=== PATIENT | male | born 2005 | race African-American/Black ===

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

== ENCOUNTER 2023-04-09 11:21 | Emergency (ER) | payer OTHER, SELFPAY ==
[2023-04-09 11:50] VITALS: BP 122/69; PULSE 70; RESP 18; TEMP 36.9; O2SAT 99
--- NOTE | 2023-04-09 13:23 | ED.URI ---
HPI - URI/Sore Throat General Chief Complaint: Upper Respiratory Infection Stated Complaint: congestion History of Present Illness HPI Narrative: 18-year-old male presented for complaint of sinus congestion, cough, sore throat, fevers and chills over the past few days. Denies shortness of breath, wheezing, nausea, vomiting or diarrhea. Taking [id number] medications for symptoms. Related Data Home Medications Medication Instructions Recorded Confirmed sertraline 100 mg tablet 100 mg PO HS 03/11/21 04/09/23 Allergies Allergy/AdvReac Type Severity Reaction Status Date / Time No Known Allergies Allergy Verified 04/09/23 12:36 Review of Systems Review of Systems: Per HPI [facility] Past Medical History Medical History History of anxiety Social History Social History Substance use: current Substance use type: marijuana Exam Narrative: GENERAL: well-appearing, no acute distress. EYES: conjunctivae clear ENT: Mucous membranes moist. TM pearly hodges with normal light reflex bilaterally; no tragal tenderness. Oropharynx mildly erythematous without lesions. Tonsils not enlarged and without exudate. No drooling, no hoarseness, no trismus, uvula midline. No tripod positioning, hot potato voice, or soft palate swelling. NECK: Supple. No lymphadenopathy CHEST: Clear to auscultation, breath sounds equal. No respiratory distress, speaks in full sentences. HEART: Regular rate and rhythm. No murmur heard. SKIN: Warm, dry, no rash. NEURO: Alert and oriented x3. Course Course Emergency Course: Patient is aware of diagnosis, understands and agrees to treatment plan. Anticipatory guidance given. Patient agrees to follow-up as directed and is aware of reasons to seek care at the emergency department. Portions of this record may have been created with voice recognition software Level of Care: Express Care Visit Vital Signs Vital signs: Vital Signs Temperature 98.4 F 04/09/23 11:50 Pulse Rate 70 04/09/23 11:50 Respiratory Rate 18 04/09/23 11:50 Blood Pressure 122/69 04/09/23 11:50 Pulse Oximetry 99 04/09/23 11:50 Oxygen Delivery Room Air 04/09/23 11:50 Temperature 98.4 F 04/09/23 11:50 Pulse Rate 70 04/09/23 11:50 Respiratory Rate 18 04/09/23 11:50 Blood Pressure 122/69 04/09/23 11:50 Pulse Oximetry 99 04/09/23 11:50 Oxygen Delivery Room Air 04/09/23 11:50 MDM - URI/Sore Throat MDM Narrative Medical decision making narrative: Negative COVID, flu, strep results reviewed with patient. Discussed physical exam findings. Advised supportive measures and signs/symptoms to go to the ER. Pt is appropriate for outpt treatment and f/u. Differential Diagnosis Differential diagnosis: Likely upper respiratory infection, sinusitis, viral infection, bronchitis and pharyngitis Lab Data Labs: Influenza A Screen Negative Reference Range: Negative Influenza B Screen Negative Reference Range: Negative Strep Screen Presumptive Negative *(Reference Range: Negative)* Discharge Plan Discharge Clinical Impression: Upper respiratory infection Patient Disposition: Home, Self-Care Condition: Stable Instructions: Antibiotic Form, Upper Respiratory Infection (ED) Additional Instructions: COVID and flu negative Rapid strep swab was negative today You will be notified in a few days if the culture comes back positive for strep, and appropriate antibiotics will be called in at that time. if symptoms are due to a viral illness, it is not treated with antibiotics. Viral symptoms can be present for up to 10-14 days. Take medication as directed Recommend Flonase spray
== END 2023-04-09 13:39 | disposition home or self-care (01) ==
PROVIDERS: Emergency Provider Nurse Practitioner Family
DX: J06.9 Acute upper respiratory infection, unspecified (principal); Z20.822 Contact with and (suspected) exposure to COVID-19; F41.9 Anxiety disorder, unspecified; F12.90 Cannabis use, unspecified, uncomplicated
CPT/HCPCS: 87081; 87426; 87804; 87880; 99213; C9803; G0463

== ENCOUNTER 2024-06-26 21:03 | Emergency (ER) | payer OTHER, SELFPAY ==
--- NOTE | ~2024-06-26 | CT_ITS ---
CT scan of the Neck Technique: 2.5 mm axial scans were obtained through the neck after intravenous administration of 75 c c Omnipaque 350. Coronal and sagittal reconstructions of the neck were obtained. Dose reduction techn ique was used on this scan by utilizing automated exposure control and iterative reconstruction techn ique. The dose-length product (DLP) was 532.97 mGy-cm. Clinical History: Neck swelling Findings: There is mild bilateral cervical lymphadenopathy, likely reactive. No other soft tissue mass or fluid collection seen in the neck. Turner tonsils are mildly prominent. Parapharyngeal spaces appear nor mal bilaterally. The parotid and submandibular glands appear normal. The pharyngeal mucosal spaces appear normal. No soft tissue masses are seen in the neck. The thyroid gland appears normal. Images of the lung apices reveal no abnormalities. Impression: Suggestion of mild tonsillitis and probable mild reactive lymphadenitis. No abscess or other soft tis frederick mass. Reviewed, dictated and finalized at [facility]. TRACK KENNEL MANAGER Impression: Suggestion of mild tonsillitis and probable mild reactive lymphadenitis. No abs cess or other soft tissue mass.
--- NOTE | ~2024-06-26 | XR_ITS ---
EXAMINATION: XR chest 2V Exam Date/Time: 06/26/2024 22:05 FINISH PRODUCTION MANAGER HISTORY: cough, sore throat Comparison: None. RESULT: Lines, tubes, and devices: None. Lungs and pleura: Clear. Cardiomediastinal silhouette: Normal. Other: No acute osseous or upper abdominal finding. IMPRESSION: No acute cardiopulmonary process. Reviewed, dictated and finalized at location K. SH PRODUCTION MANAGER
[2024-06-26 21:07] VITALS: BP 130/81; PULSE 80; RESP 18; TEMP 36.2; O2SAT 98
--- OUTSIDE RECORDS SUMMARY | 2024-06-26 21:07 | XMS_ITS ---
Author Organization [facility]ly [facility] Address [address] [place] [address] Care Team Providers Care Field Marketing Manager Name Role Phone Kalpana Michel Primary Care Provider [phone] Social History Sex Assigned At : Social History Observation Description Sex Assigned At Male Encounters Encounter Location Date Provider Diagnosis [address] [address] 06/18/2024 Kalpana Michel Plan Of Treatment No Information Progress Notes * Onofre TINSLEYDOB: [birth year] (19 yo M)Acc No.[id number]:06/18/2024 Patient: Onofre COLEMAN :2005 A ge:19 Y S ex:Male Address:[address] [place] [address], [id number] Subjective: * Chief Complaints: * * HPI: I nitial: Issues discussed: . Client asked for the HN to reach out to Dr. Willams's nurse to let them know his medications were sent to the wrong pharmacy.. S trengths: . . G oal/Objective: . . Scott carrillo's action: . HN reached out to Shelbi Monroe to provide her with the correct pharmacy information for [facility] [phone]. Client is needing his prescriptions sent to the right pharmacy.. P kei's response: . Patient is waiting on a response from the 's nurse regarding his prescriptions.. * Medical History: * Surgical History: * Hospitalization/Major Diagno stic Procedure: * Medications: Objective: * Vitals: * Physical Examination: Assessment: Plan: * Treatment: * Procedure Codes: T 1016 CASE MANAGEMENT EACH 15 MINS * true * Date: Generated for Carla denton/Dariel/Lorraine on: 0 06/26/2024 09:07 PM AUTO INSPECTION SPECIALIST History and Physical Notes * HPI (History of Present Illness) Category Sub-Category Detail Notes Category Not es Initial Issues discussed: .Client asked for the HN to reach out to Dr. Willams's nurse to let them know his medications were sent to the wrong pharmacy. Goal/Objective: . Counselor's action: .HN reached out to Pasha Monroe to provide her with the correct pharmacy information for [facility] [phone]. Client is needing his prescriptions sent to the right pharmacy. Patient's response: .Patient is waiting on a response from the 's nurse regarding his prescriptions. Strengths: .
--- OUTSIDE RECORDS SUMMARY | 2024-06-26 21:08 | XMS_ITS | Patient Health Record ---
Author Organization [facility] Address [address] [place] [address] Care Team Providers Care Scientific Recruiter Name Role Phone Kalpana Michel Primary Care Provider [phone] ImerSergenancy Harvey [phone] Allergies No Known Allergies Results Component Value Reference Range Notes HIV Screen *HIV 1, 2 Ab, p24 Ag ([id number]) Reviewed date:06/22/2024 05:09:19 PM Interpretation: Performing Lab:[facility], [address] [facility], Phone - [phone], Director - [facility] Notes/Report: HIV Ab/p24 Ag Screen Non Reactive Non Reactive HIV-1/HIV-2 antibodies and HIV-1 p24 antigen were NOT detected. There is no laboratory evidence of HIV infection. HIV Negative Vitamin B12 and Folate Reviewed date:06/22/2024 05:09:19 PM Interpretation: Performing Lab:[place], [address] [place] [address], Phone - [phone], Director - [facility] Notes/Report: Vitamin B12 193 580-0680 pg/mL Folate (Folic Acid), Serum 5.9 >3.0 ng/mL A serum folate concentration of less than 3.1 ng/mL is considered to represent clinical deficiency. Iron and TIBC* Reviewed date:06/22/2024 05:09:19 PM Interpretation: Performing Lab:[facility], [address] [facility], Phone - [phone], [facility] Notes/Report: Iron Bind.Cap.(TIBC) 401 250-450 ug/dL UIBC 296 111-343 ug/dL Iron 105 38-169 ug/dL Iron Saturation 26 15-55 % Hepatitis B Surface Antigen (HBsAg Screen) Reviewed date:06/22/2024 05:09:19 PM Interpretation: Performing Lab:[address], Phone - [phone], Director - [facility] Notes/Report: HBsAg Screen Negative Negative Hepatitis C Virus Antibody w /Rflx to Quantitative Real-time PCR ([id number]) Reviewed date:06/22/2024 05:09:20 PM Interpretation: Performing Lab:[address], Phone - [phone], Director - [facility] Notes/Report: HCV Ab Non Reactive Non Reactive Interpretation: Not infected with HCV unless early or acute infection is suspected (which may be delayed in an immunocompromised individual), or other evidence exists to indicate HCV infection. Chlamydia/Gonococcus RICHIE ([id number])* Reviewed date:06/22/2024 05:09:20 PM Interpretation: Performing Lab:[address], Phone - [phone], Director - [facility] Notes/Report: Chlamydia trachomatis, RICHIE Negative Negative Neisseria gonorrhoeae, RICHIE Negative Negative CMP 14 Comprehensive Metabol ic Panel* Reviewed date:06/22/2024 05:09:20 PM Interpretation: Performing Lab:[address], Phone - [phone], Director - [facility] Notes/Report: Glucose 78 70-99 mg/dL BUN 15 6-20 mg/dL Creatinine 0.80 0.76-1.27 mg/dL eGFR 129 >59 mL/min/1.73 BUN/Creatinine Ratio 19 9-20 Sodium 140 134-144 mmol/L Potassium 4.5 3.5-5.2 mmol/L Chloride 106 96-106 mmol/L Carbon Dioxide, Total 22 20-29 mmol/L Calcium 9.5 8.7-10.2 mg/dL Protein, Total 7.3 6.0-8.5 g/dL Albumin 4.6 4.3-5.2 g/dL Globulin, Total 2.7 1.5-4.5 g/dL Bilirubin, Total 0.4 0.0-1.2 mg/dL Alkaline Phosphatase 104 44-121 IU/L AST (SGOT) 16 0-40 IU/L ALT (SGPT) 18 0-44 IU/L CBC With Differential/Platel et* Reviewed date:06/22/2024 05:09:19 PM Interpretation: Performing [facility], [address] [facility], Phone - [phone], [facility] Notes/Report: WBC 7.6 3.4-10.8 x10E3/uL RBC 5.61 4.14-5.80 x10E6/uL Hemoglobin 16.0 13.0-17.7 g/dL Hematocrit 49.1 37.5-51.0 % MCV 88 79-97 fL MCH 28.5 26.6-33.0 pg MCHC 32.6 31.5-35.7 g/dL RDW 13.9 11.6-15.4 % Platelets 267 150-450 x10E3/uL Neutrophils 68 Not Estab. % Lymphs 23 Not Estab. % Monocytes 8 Not Estab. % Eos 1 Not Estab. % Basos 0 Not Estab. % Neutrophils (Absolute) 5.1 1.4-7.0 x10E3/uL Lymphs (Absolute) 1.7 0.7-3.1 x10E3/uL Monocytes(Absolute) 0.6 0.1-0.9 x10E3/uL Eos (Absolute) 0.1 0.0-0.4 x10E3/uL Baso (Absolute) 0.0 0.0-0.2 x10E3/uL Immature Granulocytes 0 Not Estab. % Immature Grans (Abs) 0.0 0.0-0.1 x10E3/uL TSH Rfx on Abnormal to Free T4 Reviewed date:06/22/2024 05:09:20 PM Interpretation: Performing Lab:[facility] [address] [facility], Phone - [phone], Director - [facility] Notes/Report: TSH 2.420 0.450-4.500 uIU/mL Rapid Plasma Reagin (RPR) Te st With Reflex to Quantitative RPR and Confirmatory Treponema pallidum Antibodies Reviewed date:06/22/2024 05:09:20 PM Interpretation: Performing Lab:[facility], [address] [facility], Phone - [phone], Director - [facility] Notes/Report: RPR Non Reactive Non Reactive Reason For Referral Reason excessive foul odor underarm despite of home remedies. 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 He reported that he is looking for a registered public surveyor of color. Client will call around and inform nurse., SUGAR Katz Monica R 03/05/2024 02:57:00 PM >Nurse contacted client. Client stated that he has appointment with a registered public surveyor at [facility]. No referral was needed. Referral Priority Routine Reason INTERMITTENT PAIN AN D HEMATOCHEZIA. WOULD LIKE HEMMORHOID SURGERY. Diagnosis 1 Hemorrhoid (K64.9) Referral Organization [facility] Referring Provider First Name Wilian Referring Provider Last Name Imer [facility] Referred Provider Specialty Colorectal S urgery General Notes SUGAR Monroe, Kathryn Albarran 06/26/2024 09:25:33 AM >referral to [facility] for Hemorrhoid surgery. letter to patient. Clinical Notes [facility], [address] [place] [id number], , Referral Priority Routine Medications Medication SIG (Take, Route, Frequency, Duration) Notes Start Date End Date Status Cetirizine HCl 10 MG TAKE 1 TABLET BY [facility] EVERY DAY FOR 30 DAYS for 30 days Not-Taking Fluticasone Propionate 50 MCG/ACT SPRAY 1 SPRAY INTO EACH NOSTRIL EVERY DAY Not-Taking Sertraline HCl 100 MG 1 tablet Orally On ce a day for 90 days 01/25/2022 Not-Taking Sertraline HCl 100 MG 1 tablet Orally On ce a day for 30 day(s) Not-Taking Lidocaine 5 % 1 application in very thin layer Externally every 6 hours for 30 days As needed to hemorrhoids for pain 06/18/2024 Active Immunizations Vaccine Route Administration Date Status Comme nts Varicella Unknown 01/17/2004 Administered Varicella Unknown 09/05/2007 Administered Tdap Unknown 02/23/2013 Administered Pneumococcal conjugate PCV 13 Unknown 2003 Admini stered Pneumococcal conjugate PCV 13 Unknown 2003 Admini stered Pneumococcal conjugate PCV 13 Unknown 2003 Admini stered Pneumococcal conjugate PCV 13 Unknown 08/04/2004 Admini stered MMR Unknown 01/17/2004 Administered MMR Unknown 09/05/2007 Administered Meningococcal MCV4 (CVX 114) Unknown 01/23/2014 Adminis tered Meningococcal MCV4 (CVX 114) Unknown 10/02/2019 Adminis tered IPV Unknown 2003 Administered IPV Unknown 2003 Administered IPV Unknown 2003 Administered IPV Unknown 09/05/2007 Administered HPV9-valent Unknown 02/12/2015 Administered HPV9-valent Unknown 07/01/2016 Administered HPV (human papillomavirus), quadrivalent, 3 dose schedule Unknown 01/23/2014 Administered Hib (PRP-T), 4 dose schedule Unknown 2003 Adminis tered Hib (PRP-T), 4 dose schedule Unknown 2003 Adminis tered Hib (PRP-T), 4 dose schedule Unknown 2003 Adminis tered Hib (PRP-T), 4 dose schedule Unknown 04/28/2004 Adminis tered Hep B,pediatric/adolescent, 3 dose schedule Unknown 2003 Administered Hep B,pediatric/adolescent, 3 dose schedule Unknown 2003 Administered Hep B,pediatric/adolescent, 3 dose schedule Unknown 2003 Administered Hep A, ped/adol, 2 dose Unknown 02/23/2013 Administered Hep A, ped/adol, 2 dose Unknown 01/23/2014 Administered DTaP, 5 pertussis antigens Unknown 2003 Administe red DTaP, 5 pertussis antigens Unknown 2003 Administe red DTaP, 5 pertussis antigens Unknown 2003 Administe red DTaP, 5 pertussis antigens Unknown 04/28/2004 Administe red DTaP, 5 pertussis antigens Unknown 09/07/2007 Administe red Social History Tobacco Use: Social History Observation Description Date Details (start date - stop date) Never Smoker NA - NA Sex Assigned At : Social History Observation Description Sex Assigned At Male Dont use, Tobacco Use/Smoking Question Answer Notes Are you a nonsmoker PRAPARE Question Answer Notes Date Completed/Updated: 06/20/2024 What is your current housing situation? I have h ousing Are you worried about losing your housing? No What is the highest level of school that you have finished? High school diploma or GED What is your current work situation? Oth erwise unemployed but not seeking work (ex. student, retired, disabled, unpaid primary direct care counselor) In the past year, have you o r any family members you live with been unable to get any of the following when it was really needed? Check all that apply I do not have problems meeting my needs Has lack of transportation k ept you from medical appointments, meetings, work or from getting things needed for daily living? No How often do you see or talk to people that you care about and feel close to? (For example: talking to friends on the phone, visiting friends or family, going to jew or club meetings) 3 to 5 times a week How stressed are you? Stress is when someone feels tense, nervous, anxious, or can\t sleep at night because their mind is troubled A little bit In the past year have you sp ent more than 2 nights in a row in a shelter, custodial, mcc center, or juvenile correctional facility? No Are you a refugee? No What country are you from? [place] Do you feel physically and e motionally safe where you currently live? Yes In the past year, have you b een afraid of your partner or ex-partner? No PRAPARE Score: 5 Problems Problem Type SNOMED Code ICD Code Onset Dates Problem Status W/U Status Risk Notes Problem Morbid obesity (disorder) (826081168) Morbid (severe) obesity due to excess calories (E66.01) Active confirmed Problem Tobacco user (831134916) Nicotine dependence, unspecified, uncomplicated (F17.200) Active confirmed Problem Anxiety disorder (075644609) Anxiety disorder, unspecified (F41.9) Active confirmed Problem Vitiligo (63554117) Vitiligo (L80) Active confirmed Problem Depression (163201429) Depression (F32.9) 2 Active confirmed Problem Vitamin D deficiency (73666176) Vitamin D deficiency (E55.9) Active confirmed Problem Seasonal allergy (293676775) Seasonal allergies (J30.2) Active confirmed Problem Obesity (439451081) Obesity, unspecified classification, unspecified obesity type, unspecified whether serious comorbidity present (E66.9) Active confirmed Vital Signs Heart Rate 64 /min 06/18/2024 Respiratory Rate 16 /min 06/28/2023 Blood pressure diastolic 60 mm Hg 06/18/2024 Oximetry 98 % 06/18/2024 Height 68 in in 06/18/2024 Blood pressure systolic 104 mm Hg 06/18/2024 Weight 206 lb lbs 06/18/2024 BMI 31.32 kg/m2 06/18/2024 Encounters Encounter Location Date Provider Diagnosis [address] [place] [address] 06/27/2023 Kalpana Michel [facility] [address] [address] 12/21/2023 Kalpana Michel [facility] [address], [place] [address] 02/29/2024 Kalpana Michel Bromhidrosis L75.0 [facility] [address] [place] [address] 06/18/2024 Kalpana Michel [facility] [address] [place] [address] 06/18/2024 Wilian Willams [address] [facility] [place] [address] 06/26/2024 Wilian Willams [address] [place] [address] 06/18/2024 Wilian Willams [facility] [address], [place] [address] 06/28/2023 Kalpana Michel Contact dermatitis L25.[address] [place] [address] 06/18/2024 Wilian Willams Hematochezia K92.1 ; Hemorrhoid K64.9 ; Pharyngitis J02.9 ; History of syphilis Z86.19 ; Exposure to potential infection Z20.9 ; Vitiligo L80 ; Fatigue R53.83 and Nutritional counseling Z71.3 Assessments Encounter Date Diagnosis (ICD Code) Assessment Notes Treatment Notes Treatment Clinical Notes Section Notes 06/18/2024 Hematochezia (ICD-10 - K92.1) 06/18/2024 Hemorrhoid (ICD-10 - K64.9) 02/29/2024 Bromhidrosis (ICD-10 - L75.0) 06/28/2023 Contact dermatitis (ICD-10 - L25.9) The best way to get rid of a rash that is caused by a substance with harsh chemicals is to stop using that substance. It might take a few days for the rash to clear up because a rash is a wound and wounds take time to heal, but you should definitely notice it going away if that's the problem. Natural ingredients make great home remedies for things like skin rashes and skin reactions to allergens:Aloe veraTea tree oilCoconut oilBaking soda pasteOatmeal bathCalamine lotion 06/18/2024 Pharyngitis (ICD-10 - J02.9) 06/18/2024 History of syphilis (ICD-10 - Z86.19) 06/18/2024 Exposure to potential infection (ICD-10 - Z20.9) 06/18/2024 Vitiligo (ICD-10 - L80) DISCUSSED RISK FOR B12 DEFICIENCY AND THYROIDITIS 06/18/2024 Fatigue (ICD-10 - R53.83) 06/18/2024 Nutritional counseling (ICD-10 - Z71.3) 06/28/2023 Other Learning About the Safe Use of Antibiotics material was discussed. Pt was provided with education regarding safe use of antibioitics, impacts of overuse of antibiotics, why antibiotics were not prescribed in this situation, and when to call the office for continued symptoms. At home treatments discussed based on symptoms. 06/18/2024 Other [employer] met with Onofre Gómez to assist in working on building skills to help the consumer gain confidence in their independent living skills. The ad writer practiced with Onofre Gómez implementing problem solving skills to help facilitate exploration of options to get his medications to the pharmacy that he prefered. The ad writer encouraged and engaged in critical thinking of how to use natural resources and coping skills to help manage symptoms in the moment. [employer] also worked on modeling and practicing with the consumer healthy coping skills to reduce stress and anxiety including breathing techniques and informed client that therapy is a service we provide if he was interested. Plan Of Treatment No Information Insurance Providers Payer Name Payer Address Payer Phone Subscriber Number Group Number Insured Name Patient Relationship to Insured Coverage Start Date Coverage End Date [facility] Zubie [address] [place] [address] [phone] [id number] Wong Gómezcarlosshante Self - patient is the insured 2 [facility] [address] [place] [address] [phone] [id number] Onofre Gómez Self - patient is the insured 1 1 [facility] [address] [place] [phone] [id number] Onofre Gómez Self - patient is the insured 1 1 Medications Administered Medication Instructions Date of Administration Dosage Notes Bicillin L-A 05/19/2022 [id number] units Medical (General) History Surgical History Surgery Date(Month/Year) appendectomy 05/2024 Hospitalization History Reason Date(Month/Year)
--- OUTSIDE RECORDS SUMMARY | 2024-06-26 21:08 | XMS_ITS | Referral Summary ---
Author Organization [facility] Address [address] [place] [address] Care Team Providers Care Baker Paint Name Role Phone Wilian Willams MD Primary Care Provider [phone] Encounters Date Type Department Care Team Description 05/15/2024 Telephone [facility] Dermatology [address] [place] [address] [address] [facility] [place] [address] Senait Shelby Request Call Back; Appeal Status 04/27/2024 Telephone [facility] Dermatology [address] [place] [address] Outpatient Health [address] [place] [address] Carline Bowie, [facility] [place] Medication Denial 04/17/2024 9:00 AM DENTAL SPECIALIST Office Visit [facility] Dermatology [address] [place] [address] [address] [facility] [place] [address] Malia Owens MD PhD Vitiligo (Primary Dx); Hyperhidrosis of axilla; Bromhidrosis from Last 3 Months Allergies No known active allergies Medications ibuprofen (ADVIL,MOTRIN) 600 mg tablet Take 1 tablet (600 mg total) by mouth every 6 (six) hours as needed for pain 30 tablet 4 Active acetaminophen (TYLENOL) 500 mg tablet Take 2 tablets (1,000 mg total) by mouth every 6 (six) hours as needed for pain 30 tablet 4 Active ruxolitinib 1.5 % creamIndication s:Vitiligo Apply 60 g topically 2 (two) times a day Apply to tip of penis twice daily 60 g 11 04/24/20 25 Active Active Problems No known active problems Social History Tobacco Use Types Packs/Day Years Used Date Smoking Tobacco: Never Assessed Personal Safety Answer Date Recorded Have you ever been in or are you currently in a harmful physical or emotional relationship or is someone making you feel afraid or unsafe? Denies 08/26/2023 Sex and Gender Information Value Date Recorded Sex Assigned at Not on file Legal Sex Male 11:37 PM CDT Gender Identity Not on file Sexual Orientation Not on file Last Filed Vital Signs Vital Sign Reading Time Taken Comments Blood Pressure 126/62 08/27/2023 3:00 AM CDT Pulse 56 08/27/2023 3:00 AM CDT Temperature 36.4 C (97.5 F) 08/26/2023 11:42 PM CDT Respiratory Rate 17 08/27/2023 3:00 AM CDT Oxygen Saturation 96% 08/27/2023 3:00 AM CDT Inhaled Oxygen Concentration - - Weight 101.2 kg (223 lb) 08/26/2023 11:42 PM CDT Height 172.7 cm (5' 8 ) 08/26/2023 11:42 PM CDT Body Mass Index 33.91 08/26/2023 11:42 PM CDT Plan of Treatment Not on file Insurance [facility] [employer] BETTER [facility] Care Teams Baker Paint Relationship Specialty Start Date End Date Wilian Willams MD [address] [facility] [place] [address] PCP - General Internal Medicine 06/26/24
--- OUTSIDE RECORDS SUMMARY | 2024-06-26 21:08 | XMS_ITS | Clinical Summary ---
Author Organization [facility] Address [address] [place] [address] Care Team Providers Care Certified Prosthetist Vice President Name Role Phone Wilian Willams MD Primary Care Provider [phone] Allergies No known active allergies Medications ibuprofen [...] of penis twice daily 60 g 11 4 04/24/20 25 Active Active Problems No known active problems Encounters Date Type Department Care Team Description 05/15/2024 Telephone [facility] Dermatology [address] [place] [address] [address] [place] [address] Senait Shelby Request Call Back; Appeal Status 04/27/2024 Telephone [facility] Dermatology [facility] Outpatient Health [address] [place] [address] Carline Bowie, [facility] [place] Medication Denial 04/17/2024 9:00 AM FREELANCE DATA ENTRY Office Visit [facility] Dermatology [address] [place] [address] [address] [place] [address] Malia Owens MD PhD Vitiligo (Primary Dx); Hyperhidrosis of axilla; Bromhidrosis from Last 3 Months Social History Tobacco Use Types Packs/Day Years [...] 08/26/2023 11:42 PM CDT Plan of Treatment Health Maintenance Due Date Last Done Comments Depression Screening 2003 Hepatitis C Screening 2003 Meningococcal B Vaccine (1 o f 2 - Standard) 2019 Regular Well Visit/Exam 18-64 2021 DTaP/Tdap/Td Vaccine (7 - Td or Tdap) 02/23/2023 02/23/2013, 09/07/2007, 04/28/2004, Additional history exists Influenza Vaccine (#1) 2024 04/28/2004 Hepatitis B Screening Completed 2003 , 2003, 2003 Pneumococcal vaccine <65 Completed 005, 2003, 2003, Additional history exists Varicella Vaccines Completed 09/05/2007, 01/17/2004 HPV Vaccines Completed 07/01/2016, 01/30, 01/23/2014 Meningococcal Vaccine Completed 10/02/2019, 014 Insurance [employer] BETTER [facility] [employer]ET[employer] BETTER [facility] Care Teams Certified Prosthetist Vice President Relationship Specialty Start Date End Date Wilian Willams MD [address] [facility] [place] [address] PCP - General Internal Medicine 06/26/24
--- OUTSIDE RECORDS SUMMARY | 2024-06-26 21:08 | XMS_ITS | Patient Health Summary ---
Author Organization [facility] Address [address] [address] Care Team Providers Care Field Technical Support Consultant Name Role Phone Unavailable Primary Care Provider Unavailabl e Note from [facility],non-owned Affiliates and Associated Physician Practices is amultiple site organization consisting of ambulatory clinics and hospital sitesin [place], [place], [place] and [place]. This disclosure is being madepursuant to the Care Everywhere program and may not contain all information available regarding this patient. Last updated 18.[facility] Allergies No known active allergies Medications * Be aware that medications may not be up to date on this document. Alwaysverify current medications with the patient. * sertraline (ZOLOFT) 100 MG tablet Take 100 mg by mouth once daily Social History Tobacco Use Types Packs/Day Years Used Date Smoking Tobacco: Every Day Smokeless Tobacco: Never Sex and Gender Information Value Date Recorded Sex Assigned at Not on file Gender Identity Male 04/10/2021 4:04 PM SYSTEM OPERATION SUPERINTENDENT Sexual Orientation Not on file Last Filed Vital Signs Vital Sign Reading Time Taken Comments Blood Pressure 112/68 04/10/2021 4:09 PM SYSTEM OPERATION SUPERINTENDENT Pulse 66 04/10/2021 4:09 PM SYSTEM OPERATION SUPERINTENDENT Temperature 37.2 C (99 F) 04/10/2021 4:09 PM SYSTEM OPERATION SUPERINTENDENT Respiratory Rate 16 04/10/2021 4:09 PM SYSTEM OPERATION SUPERINTENDENT Oxygen Saturation 98% 04/10/2021 4:09 PM SYSTEM OPERATION SUPERINTENDENT Inhaled Oxygen Concentration - - Weight 108.9 kg (240 lb) 04/10/2021 4:09 PM SYSTEM OPERATION SUPERINTENDENT Height 172.7 cm (5' 8 ) 04/10/2021 4:09 PM SYSTEM OPERATION SUPERINTENDENT Body Mass Index 36.49 04/10/2021 4:09 PM SYSTEM OPERATION SUPERINTENDENT Procedures * STREP A SCREEN - POINT OF CARE (AMB) STL(Performed 04/10/2021) Performed for Acute streptococcal pharyngitis Results * (ABNORMAL) STREP A SCREEN - POINT OF CARE (AMB) STL (04/10/2021 4:27 PM SYSTEM OPERATION SUPERINTENDENT) Strep A Rapid POCT Positive(A) Negative [facility] Strep A Internal Control Present [facility] Lot # [id number] [facility] Expiration Date 09/21/22 [facility] Throat ENTIRE THROAT (SURFACE REGION OF NECK) / Unknown 04/10/2021 4:27 PM SYSTEM OPERATION SUPERINTENDENT Nirmala Gill APRN-[facility] - POINT OF CA RE ORDERABLES [facility] [address] [phone]
--- OUTSIDE RECORDS SUMMARY | 2024-06-26 21:08 | XMS_ITS ---
Author Organization [facility] Address [address] [place] [address] Care Team Providers Care Stereo Compiler Name Role Phone Kalpana Michel Primary Care Provider [phone] Wilian Willams [phone] REASON FOR VISIT labs results Social History Sex Assigned At : Social History Observation Description Sex Assigned At Male Encounters Encounter Location Date Provider Diagnosis [address] [place] [address] 06/26/2024 Wilian Willams Plan Of Treatment No Information Progress Notes * Onofre TINSLEYDOB: [birth year] (19 yo M)Acc No.[id number]:06/26/2024 Patient: Onofre COLEMAN :2005 A ge:19 Y S ex:Male Address:[address] [place] [address], [address] * true * Date: Generated for Mishai bertin/Fajaig/eTransmitting on: 0 06/26/2024 09:07 PM WATER SERVER
--- OUTSIDE RECORDS SUMMARY | 2024-06-26 21:08 | XMS_ITS | Encounter Summary ---
Author Organization [facility] Address [address] [place] [address] Phone Care Team Providers Care Yard Crane Operator Name Role Phone Kalpana Michel NP Primary Care Provider Wilian Willams MD Primary Care Provider [phone] Reason for Visit * Reason Onset Date Comments Request Call Back 05/15/2024 Appeal Status 05/15/2024 Encounter Details Date Type Department Care Team (Late st Contact Info) Description 05/15/[address] [facility] Dermatology [address] [place] [address] Senait Shelby Request Call Back; Appeal Status Social History Tobacco Use Types Packs/Day Years [...] on file Sexual Orientation Not on file documented as of this encounter Miscellaneous Notes * Telephone Encounter - Cory Esquivel CMA - 06/26/2024 8:34 AM ACQUISITION ADVISOR Please advise for Opzelura denial. Pt must try/fail topical corticosteroids or calcineurin inhibitors first. ROV 10/16/24 JAMES 04/17/24 Dx: Vitiligo ISITION ADVISOR * Telephone Encounter - Charley Orta - 06/26/2024 8:15 AM CST Onofre Gómez is calling stating that he is calling to check the appeal status of the Opzelura .Please call pt back with an update. ISITION ADVISOR * Telephone Encounter - Cory Esquivel CMA - 05/15/2024 4:15 PM ACQUISITION ADVISOR Mr. Kolb informed medication was denied and we will appeal the decision or the provider will decide what alternatives are appropriate. ISITION ADVISOR * Telephone Encounter - Cory Esquivel CMA - 05/15/2024 4:[address] [facility] Infectious Diseases Pharmacy Referral Drug Name & Strength: Opzelura 1.5% Cream Quantity: 60 Days Supply: 30 Insurance Plan: [facility] Prior Authorization Required: Y CoverMyMeds C[place]: [id number] PA Status: Denied Notes to Office:Pt must try/fail topical corticosteroids or calcineurin inhibitors first. Please let us know next steps. ISITION ADVISOR * Telephone Encounter - Cory Esquivel CMA - 05/15/2024 3:44 PM ACQUISITION ADVISOR It is not out of stock. His insurance company denied it. [facility] pharmacy sent you/ your pool a message. Patient must try/fail other medications Insurance Plan: [facility] Prior Authorization Required: Y CoverMyMeds [place]: [id number] PA Status: Denied Notes to Office:Pt must try/fail topical corticosteroids or calcineurin inhibitors first. Please let us know next steps. ISITION ADVISOR ISITION ADVISOR ISITION ADVISOR * Telephone Encounter - Malia Owens MD PhD - 05/15/2024 2:35 PM CST Can you send it to our pharmacy. ISITION ADVISOR * Telephone Encounter - Senait Shelby - 05/15/2024 1:37 PM CST Pt would like a call back Pt states [facility] pharmacy told him that Ruxolitinib 1.5%cream is out of stock. Pt states he needs an alternative medication. [facility] pharmacy #[id number] is correct. ISITION ADVISOR documented in this encounter Plan of Treatment Not on file documented as of this encounter Visit Diagnoses Not on filedocumented in this encounter Care Teams Yard Crane Operator Relationship Specialty Start Date End Date Kalpana Michel NP [address] [facility] [place] [address] PCP - General Family Medicine 08/25/23 06/25/24 Wilian Willams MD [address] [place] [address] [place] [address] PCP - General Internal Medicine 06/26/24 documented as of this encounter
--- OUTSIDE RECORDS SUMMARY | 2024-06-26 21:08 | XMS_ITS | Referral Summary ---
Author Organization [facility] [employer] Address [address] [place] [address] Care Team Providers Care Psychiatric Attendant Name Role Phone Unavailable Primary Care Provider Unavailabl e Source Comments [facility] [employer],non-owned Affiliates and Associated Physician Practices is amultiple site organization consisting of ambulatory clinics and hospital sitesin [place], [place], [place] and [place]. This disclosure is being madepursuant to the Care Everywhere program and may not contain all information available regarding this patient. Last updated 18.[facility] [employer] Allergies No known active allergies Medications * Be aware that medications may not be up to date on this document. Alwaysverify current medications with the patient. Medication Sig Dispensed Refills Start Date End Date Status sertraline (ZOLOFT) 100 MG tablet Take 100 mg by mouth once daily Active Social History Tobacco Use Types Packs/Day Years Used Date Smoking Tobacco: Every Day Smokeless Tobacco: Never Sex and Gender Information Value Date Recorded Sex Assigned at Not on file Gender Identity Male 04/10/2021 4:04 PM WOOL SCOURER Sexual Orientation Not on file Last Filed Vital Signs Vital Sign Reading Time Taken Comments Blood Pressure 112/68 04/10/2021 4:09 PM WOOL SCOURER Pulse 66 04/10/2021 4:09 PM WOOL SCOURER Temperature 37.2 C (99 F) 04/10/2021 4:09 PM WOOL SCOURER Respiratory Rate 16 04/10/2021 4:09 PM WOOL SCOURER Oxygen Saturation 98% 04/10/2021 4:09 PM WOOL SCOURER Inhaled Oxygen Concentration - - Weight 108.9 kg (240 lb) 04/10/2021 4:09 PM WOOL SCOURER Height 172.7 cm (5' 8 ) 04/10/2021 4:09 PM WOOL SCOURER Body Mass Index 36.49 04/10/2021 4:09 PM WOOL SCOURER Plan of Treatment Not on file
--- OUTSIDE RECORDS SUMMARY | 2024-06-26 21:08 | XMS_ITS | Clinical Summary ---
Author Organization [facility] [employer] Address [address] [place] [address] Care Team Providers Care Client Service Administrator Name Role Phone Unavailable Primary Care Provider Unavailabl e Source Comments [facility] [employer],non-owned Affiliates and Associated Physician Practices is amultiple site organization consisting of ambulatory clinics and hospital sitesin [place], [place], [place] and [place]. This disclosure is being madepursuant to the Care Everywhere program and may not contain all information available regarding this patient. Last updated 18.[facility] [employer] Allergies No known active allergies Medications * [...] file Gender Identity Male 04/10/2021 4:04 PM MAMMAL CONTROL AGENT Sexual Orientation Not on file Last Filed Vital Signs Vital Sign Reading Time Taken Comments Blood Pressure 112/68 04/10/2021 4:09 PM MAMMAL CONTROL AGENT Pulse 66 04/10/2021 4:09 PM MAMMAL CONTROL AGENT Temperature 37.2 C (99 F) 04/10/2021 4:09 PM MAMMAL CONTROL AGENT Respiratory Rate 16 04/10/2021 4:09 PM MAMMAL CONTROL AGENT Oxygen Saturation 98% 04/10/2021 4:09 PM MAMMAL CONTROL AGENT Inhaled Oxygen Concentration - - Weight 108.9 kg (240 lb) 04/10/2021 4:09 PM MAMMAL CONTROL AGENT Height 172.7 cm (5' 8 ) 04/10/2021 4:09 PM MAMMAL CONTROL AGENT Body Mass Index 36.49 04/10/2021 4:09 PM MAMMAL CONTROL AGENT Plan of Treatment Health Maintenance Due Date Last Done Comments HIV SCREENING 2018 HPV VACCINE (1 - Male 3-dose series) 2018 MENINGOCOCCAL (Group B) VACC INE (1 of 2 - Standard) 2019 HEPATITIS C SCREENING 01/10/2021 DTAP/TDAP/TD VACCINES (1 - Tdap) 2022 HEPATITIS B VACCINE (1 of 3 - 19+ 3-dose series) 2022 PNEUMOCOCCAL VACCINE (1 of 2 - PCV) 2022 COVID-19 VACCINE (1 - 2023-2 5 season) 2024 INFLUENZA VACCINE (#1) 2024 DEPRESSION SCREENING 05/02/2024 ZOSTER VACCINE (1 of 2) 2053 HIB VACCINE Aged Out No longer eligi ble based on patient's age to complete this topic MENINGOCOCCAL VACCINE Aged Out No gennaro susan eligible based on patient's age to complete this topic
--- OUTSIDE RECORDS SUMMARY | 2024-06-26 21:08 | XMS_ITS ---
Author Organization [facility] Address [address] [place] [address] Care Team Providers Care Wool Shearing Supervisor Name Role Phone KaterynabertinbhaveshKalpana Primary Care Provider [phone] Wilian Willams Unavailable [phone] REASON FOR VISIT Smart form/aTBC Social History Tobacco Use: Social History Observation [...] work (ex. 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 Stress is when someone feels tense, nervous, anxious, or can\t sleep at night because their mind is troubled A little bit In the past year have you sp ent more than 2 nights in a row in a usp, skilled nursing, long term center, or juvenile correctional facility? No Are you a refugee? No What country are you from? [place] Do you feel physically and e motionally safe where you currently live? Yes In the past year, have you b een afraid of your partner or ex-partner? No PRAPARE Score: 5 Encounters Encounter Location Date Provider Diagnosis [facility] [address] [place] [address] 06/18/2024 Wilian Willams Assessments Encounter Date Diagnosis (ICD Code) Assessment Notes Treatment Notes Treatment Clinical Notes Section Notes 06/18/2024 Other Barrel Roller met with Onofre Tinsley to assist in working on building skills to help the consumer gain confidence in their independent living skills. The business writer practiced with Onofre Tinsley implementing problem solving skills to help facilitate exploration of options to get his medications to the pharmacy that he prefered. The business writer encouraged and engaged in critical thinking of how to use natural resources and coping skills to help manage symptoms in the moment. Barrel Roller also worked on modeling and practicing with the consumer healthy coping skills to reduce stress and anxiety including breathing techniques and informed client that therapy is a service we provide if he was interested. Plan Of Treatment Treatment Notes Assessment Notes Other Barrel Roller met with Onofre Tinsley to assist in working on building skills to help the consumer gain confidence in their independent living skills. The business writer practiced with Onofre Tinsley implementing problem solving skills to help facilitate exploration of options to get his medications to the pharmacy that he prefered. The business writer encouraged and engaged in critical thinking of how to use natural resources and coping skills to help manage symptoms in the moment. Barrel Roller also worked on modeling and practicing with the consumer healthy coping skills to reduce stress and anxiety including breathing techniques and informed client that therapy is a service we provide if he was interested. Progress Notes * Onofre TINSLEYDOB: [birth year] (19 yo M)Acc No.[id number]:06/18/2024 Patient: Scott NIKISOURAVOnofre :2005 A ge:19 Y S ex:Male Address:[address] [place] [address], [address] Subjective: * Chief Complaints: * S mart form/aTBC * HPI: a TBC For Mental Health Services: Who Is Your Primary Care Provider? D o You Have A PCP? Y es Kalpana Michel (saw Dr. Willams while she is on leave). D ate of last physical exam 0 -2024 Do You Have A Psychiatric Provider? D o You Have A Psychiatric Provider? N o Do You Have Any Other Professional Supports? D o You Have Any Other Professional Supports??No Consent Forms Completed During Appointment C onsent Forms Completed C onsent To Treat, Health Care Providers A ssessment of Social Determinants of Health::: Has A PRAPARE Been Completed In The Past Year? H as a PRAPARE Been Completed In The Past Year? Y es W as It Completed Today Using SmartViajala? Y es * Medical History: * Surgical History: * Hospitalization/Major Diagno stic Procedure: * Social History: S ocial Determinants: P RAPARE D ate Completed/Updated: 0 06/20/2024 W hat is your current housing situation? I have housing A re you worried about losing your housing??No W hat is the highest level of school that you have finished? H igh school diploma or GED W hat is your current work situation? O therwise unemployed but not seeking work (ex. 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 Check all that apply I do not have problems meeting my needs H as lack of transportation kept you from medical appointments, meetings, work or from getting things needed for daily living? N o H ow often do you see or talk to people that you care about and feel close to? (For example: talking to friends on the phone, visiting friends or family, going to caodaism or club meetings) 3 to 5 times a week H ow stressed are you? Stress is when someone feels tense, nervous, anxious, or can\t sleep at night because their mind is troubled A little bit I n the past year have you spent more than 2 nights in a row in a usp, skilled nursing, long term center, or juvenile correctional facility? N o A re you a refugee? N o W hat country are you from[place] D o you feel physically and emotionally safe where you currently live? Y es I n the past year, have you been afraid of your partner or ex-partner? N o P RAPARE Score: 5 T obacco Use: D ont use, Tobacco Use/Smoking A re you a n onsmoker * Medications: Objective: * Vitals: * Examination: G eneral Examination: E xplanation of presentation/need: Client stated his refills were sent to the wrong pharmacy. HN reached out to [facility] to see if they could be sent to the right pharmacy. Client did not want to have them transfered by the pharmacy. * Physical Examination: Assessment: Plan: * Treatment: * Procedure Codes: T 1016 Case [id number] [facility] [id number] Insurance Application [id number] Housing [id number] Referring to Performance Specialist * true * Date: Generated for Carla denton/Dariel/Lorraine on: 0 06/26/2024 09:07 PM COMMUNICATIONS TECH History and Physical Notes * HPI (History of Present Illness) Category Sub-Category Detail Notes Category Not es Assessment of Social Determinants of Health:: Has A PRAPARE Been Completed In The Past Year? Has a PRAPARE Been Completed In The Past Year?: Yes Was It Completed Today Using SmartViajala?: Yes [facility] Who Is Your Primary Care Provider? Do You Have A PCP?: Yes Kalpana Michel (saw Dr. Willams while she is on leave). Date of last physical exam: Do You Have A Psychiatric Provider? Do You Have A Psychiatric Provider?: No Do You Have Any Other Profes sional Supports? Do You Have Any Other Professional Supports?: No Consent Forms Completed During Appointme nt Consent Forms Completed: Consent To Treat, Health Care Providers Examination Category Sub-Category Detail Notes Category Not es General Examination Explanat ion of presentation/need: Client stated his refills were sent to the wrong pharmacy. HN reached out to [facility] Monroe to see if they could be sent to the right pharmacy. Client did not want to have them transfered by the pharmacy.
--- NOTE | 2024-06-26 21:41 | ED.GENADULT ---
HPI - General Adult General Chief complaint: Unspecified Stated complaint: throat pain Time Seen by Provider: 06/26/24 21:40 History of Present Illness HPI narrative: Patient is a 19-year-old male who presents to the ER with 2-day history throat pain. He reports he 1st noticed this sensation after he ate dinner two evenings ago, but the pain has gradually gotten worse. Patient reports he has also noticed difficulty swallowing and reports his throat feels full. He denies any congestion, cough, headache, abdominal pain, lymph node swelling, drooling, or recent fevers. Patient denies any relevant medical history. Related Data Home Medications ?Medication ?Instructions ?Recorded ?Confirmed ?Last Taken ?Type sertraline 100 mg tablet 100 mg PO HS 03/11/21 04/09/23 Unknown History Allergies Allergy/AdvReac Type Severity Reaction Status Date / Time No Known Allergies Allergy Verified 06/26/24 21:05 Review of Systems Review of Systems: All systems reviewed & are unremarkable except as noted in HPI and below PMFSH Past Medical History Medical History History of anxiety Social History Social History Substance use: current Substance use type: marijuana Exam Narrative: GENERAL: Well appearing, well-nourished, non-toxic, in no acute distress. HEAD: Normocephalic, atraumatic. NECK: Supple. Mildly edematous tonsils. No exudate or edema on tonsils. Mild cervical lympadema. RESPIRATORY: Airway patent, respirations nonlabored. Clear to auscultation bilaterally, no rales, rhonchi, wheezing. CARDIOVASCULAR: Regular rate and rhythm without murmurs, rubs, or gallops. Peripheral pulses 2+ and equal bilaterally. ABDOMINAL: Soft, nontender, nondistended, no hepatosplenomegaly. Normoactive BS. MUSCULOSKELETAL: Moves all extremities. Strength/ROM intact without gross deformities. SKIN: Warm, dry, normal color. No rashes. NEURO: A&O X3. Speech clear. Cranial nerves II-XII grossly intact. Steady gait. No ataxic movements. PSYCHIATRIC: Appropriate mood and affect. Normal interaction. Course Vital Signs Vital signs: Vital Signs Temperature 36.2 C L 06/26/24 21:07 Pulse Rate 80 06/26/24 21:07 Respiratory Rate 18 06/26/24 21:07 Blood Pressure 130/81 06/26/24 21:07 Pulse Oximetry 98 06/26/24 21:07 Oxygen Delivery Room Air 06/26/24 21:07 Temperature 36.3 C L 06/27/24 03:51 Pulse Rate 74 06/27/24 03:51 Respiratory Rate 17 06/27/24 03:51 Blood Pressure 122/78 06/27/24 03:51 Pulse Oximetry 100 06/27/24 03:51 Oxygen Delivery Room Air 06/26/24 21:07 Medical Decision Making MDM Narrative Medical decision making narrative: Patient is a 19-year-old male who presents to the ER with 2-day history throat pain. He reports he 1st noticed this sensation after he ate dinner two evenings ago, but the pain has gradually gotten worse. Patient reports he has also noticed difficulty swallowing and reports his throat feels full. He denies any congestion, cough, headache, abdominal pain, lymph node swelling, drooling, or recent fevers. Patient denies any relevant medical history. Labs Ordered: CBC, CMP, Monotest, COVID/flu/RSV, strep Imaging Ordered: chest x-ray, CT soft tissue neck with con Medications Ordered: Prednisone 60 mg p.o., Toradol 60 mg IM, GI cocktail Results: Patient's CT scan indicates mildly enlarged tonsils, but is negative for an abscess or any foreign bodies. Pt's chest x-ray indicates no acute abnormalities. Diagnosis: Tonsillitis Patient Education/Shared MDM: Results of lab work and scan shared with patient. He endorses pain improvement following medication administration. Patient strongly advised to maintain hydration status upon discharge and follow-up with his PCP as soon as possible. He will be discharged home with prescription for Augmentin, Medrol Dose Samuel, and viscous lidocaine. Strict return precautions provided. Patient verbalized understanding is in agreement with plan. Vital signs stable at time of discharge. All questions answered. Vital Signs Vital Signs: Vital Signs Temperature 36.2 C L 06/26/24 21:07 Pulse Rate 80 06/26/24 21:07 Respiratory Rate 18 06/26/24 21:07 Blood Pressure 130/81 06/26/24 21:07 Pulse Oximetry 98 06/26/24 21:07 Oxygen Delivery Room Air 06/26/24 21:07 Temperature 36.3 C L 06/27/24 03:51 Pulse Rate 74 06/27/24 03:51 Respiratory Rate 17 06/27/24 03:51 Blood Pressure 122/78 06/27/24 03:51 Pulse Oximetry 100 06/27/24 03:51 Oxygen Delivery Room Air 06/26/24 21:07 Lab Data Lab results reviewed: Yes I reviewed the patient's lab results. 06/26/24 22:57 06/26/24 22:57 Labs: Lab Results 06/26/24 06/26/24 Range/Units 21:48 22:57 WBC 7.9 (4.5-10.0) K/mm3 RBC 5.12 (4.6-6.20) M/mm3 Hgb 15.1 (14.0-18.0) g/dL Hct 43.6 (42.0-52.0) % MCV 85.2 (80-100) fl MCH 29.5 (26-34) pg MCHC 34.6 (32-36) g/dl RDW 13.4 (11.5-14.5) % Plt Count 308 (150-375) k/mm3 MPV 10.1 (7.4-10.4) fl Immature Gran % (Auto) 0.3 (0-0.5) % Neut % (Auto) 58.0 (45.5-73.1) % Lymph % (Auto) 29.2 (18.3-44.2) % [place] % (Auto) 9.9 H (2.6-8.5) % Eos % (Auto) 1.8 (0-4.4) % Baso % (Auto) 0.8 (0.2-1.2) % Lymph # (Auto) 2.32 (0.9-3.2) K/mm3 [place] # (Auto) 0.8 H (0.1-0.6) K/mm3 Eos # (Auto) 0.1 (0-0.3) K/mm3 Baso # (Auto) 0.1 (0.0-0.1) K/mm3 Abs Immat Gran (auto) 0.02 (0.00-0.031) K/mm3 Absolute Neuts (auto) 4.6 (1.3-6.7) K/mm3 Absolute Nucleated RBC 0.000 (0.0-0.012) K/mm3 Nucleated RBC % 0.0 (0.0-0.2) % Sodium 140 (137-145) mmol/L Potassium 4.6 (3.4-5.0) mmol/L Chloride 107 (98-107) mmol/L Carbon Dioxide 23 (22-30) mmol/L Anion Gap 10 (4-12) mmol/L BUN 14 (9-20) mg/dL Creatinine 0.82 (0.7-1.3) mg/dL Estim Creat Clear Calc 135 ml/min Estimated GFR > 60 (59 - ) Glucose 97 (65-110) mg/dL Calcium 9.3 (8.4-10.2) mg/dL Total Bilirubin 0.5 (0.2-1.3) mg/dL AST 84 H (17-59) U/L ALT 31 (6-50) U/L Alkaline Phosphatase 87 (38-126) U/L Total Protein 7.0 (6.3-8.2) g/dL Albumin 4.3 (3.5-5.1) g/dL Monoscreen Negative (Negative) Influenza A (RT-PCR) Negative (Negative) Influenza B (RT-PCR) Negative (Negative) RSV (RT-PCR) Negative (Negative) SARS-CoV-2 RNA (RT-PCR) Negative (Negative) Group A Strep (PCR) Not detected (Negative) Pt's monotest was negative. Imaging Data Attestation: I personally reviewed and interpreted this imaging study as follows: Discharge Plan Discharge Clinical Impression: Acute bacterial tonsillitis Patient Disposition: Home, Self-Care Condition: Stable Instructions: Antibiotic Form, Tonsillitis (ED) Additional Instructions: Please return to the ER with an worsening symptoms. Follow-up with primary care provider in the next 2-3 days. Take all medications as prescribed. Patient Language: Austrian Prescriptions: New amoxicillin-pot clavulanate 875-125 mg tablet 1 tablet PO Q12H Qty: 20 0RF methylprednisolone [Medrol (Samuel)] 4 mg tablets,dose pack See Rx Instructions .ROUTE .COMPLEX Qty: 21 0RF Rx Instructions: for 6 days lidocaine HCl [Lidocaine Viscous] 2 % solution 1 applic mucous membrane TID PRN (Reason: pain) Qty: 300 0RF No Action benzonatate 200 mg capsule 200 mg PO TID PRN (Reason: cough) Qty: 20 0RF prednisone 20 mg tablet 40 mg PO DAILY 4 Days Qty: 8 0RF sertraline 100 mg tablet 100 mg PO HS Follow-up/Referrals: Jeanna Dillard DO [Physician] - (primary care) PHYSICIAN NOT ON STAFF,NONSTAFF [Primary Care Provider] - Stand Alone Forms: Work/School Release IP Time of Disposition: 02:42
--- OUTSIDE RECORDS SUMMARY | 2024-06-26 22:05 | XMS_ITS | Referral Summary ---
Author Organization [facility] Address [address] [place] [address] Care Team Providers Care Spd Tech Name Role Phone Wilian Willams MD Primary Care Provider [phone] Encounters Date Type Department Care Team Description 05/15/2024 Telephone [facility] Dermatology [address] [place] [address] [address] [place] [address] Senait Shelby Request Call Back; Appeal Status 04/27/2024 Telephone [facility] D[facility] [address] [place] [address] Outpatient Health [address] [place] [address] Carline Bowie, [facility] [place] Medication Denial 04/17/2024 9:00 AM HOOP EXPANDER Office Visit [facility] [address] [place] [address] [address] [facility] [place] [address] Malia Owens MD PhD Vitiligo (Primary [...] Plan of Treatment Not on file [facility] AETNA BETTER [facility] Care Teams Spd Tech Relationship Specialty Start Date End Date Wilian Willams MD [address] [facility] [place] [address] PCP - General Internal Medicine 06/26/24
--- OUTSIDE RECORDS SUMMARY | 2024-06-26 22:05 | XMS_ITS | Referral Summary ---
Author Organization [facility] [employer] Address [address] [facility] [place] [address] Care Team Providers Care Advisor To Command In Combat Name Role Phone Unavailable Primary Care Provider Unavailabl e Source Comments [facility] [employer],non-owned Affiliates and Associated Physician Practices is amultiple site organization consisting of ambulatory clinics and hospital sitesin [place], [place], [place] and [place]. This disclosure is being madepursuant to the Care Everywhere program and may not contain all information available regarding this patient. Last updated 18.[facility] [employer] Allergies No known active allergies Medications * [...] file Gender Identity Male 04/10/2021 4:04 PM CLINICAL RESEARCH TECHNICIAN Sexual Orientation Not on file Last Filed Vital Signs Vital Sign Reading Time Taken Comments Blood Pressure 112/68 04/10/2021 4:09 PM CLINICAL RESEARCH TECHNICIAN Pulse 66 04/10/2021 4:09 PM CLINICAL RESEARCH TECHNICIAN Temperature 37.2 C (99 F) 04/10/2021 4:09 PM CLINICAL RESEARCH TECHNICIAN Respiratory Rate 16 04/10/2021 4:09 PM CLINICAL RESEARCH TECHNICIAN Oxygen Saturation 98% 04/10/2021 4:09 PM CLINICAL RESEARCH TECHNICIAN Inhaled Oxygen Concentration - - Weight 108.9 kg (240 lb) 04/10/2021 4:09 PM CLINICAL RESEARCH TECHNICIAN Height 172.7 cm (5' 8 ) 04/10/2021 4:09 PM CLINICAL RESEARCH TECHNICIAN Body Mass Index 36.49 04/10/2021 4:09 PM CLINICAL RESEARCH TECHNICIAN Plan of Treatment Not on file
--- OUTSIDE RECORDS SUMMARY | 2024-06-26 22:05 | XMS_ITS | Encounter Summary ---
Author Organization [facility] Address [address] [place] [address] Phone Care Team Providers Care Senior Linux Unix Administrator Name Role Phone Kalpana Michel NP Primary Care Provider Wilian Willams MD Primary Care Provider [phone] Reason for Visit * Reason Onset Date Comments Request Call Back 05/15/2024 Appeal Status 05/15/2024 Encounter Details Date Type Department Care Team (Late st Contact Info) Description 05/15/2024 Telephone [facility] Dermatology [address] [place] [address] Senait Shelby Request Call Back; [...] Cory Esquivel CMA - 06/26/2024 8:34 AM BOILER COVERER HELPER Please advise for Opzelura denial. Pt must try/fail topical corticosteroids or calcineurin inhibitors first. ROV 10/16/24 JAMES 04/17/24 Dx: Vitiligo ER COVERER HELPER * Telephone Encounter - Charley Orta - 06/26/2024 8:15 AM CST Onofre Gómez is calling stating that he is calling to check the appeal status of the Opzelura .Please call pt back with an update. ER COVERER HELPER * Telephone Encounter - Cory Esquivel CMA - 05/15/2024 4:15 PM BOILER COVERER HELPER Mr. Kolb informed medication was denied and we will appeal the decision or the provider will decide what alternatives are appropriate. ER COVERER HELPER * Telephone Encounter - Cory Esquivel CMA - 05/15/2024 4:10 PM BOILER COVERER HELPER [facility] Infectious Diseases Pharmacy Referral Drug Name & Strength: Opzelura 1.5% Cream Quantity: 60 Days Supply: 30 Insurance Plan: [facility] Prior Authorization Required: Y CoverMyMeds [place]: [id number] [place] Status: Denied Notes to Office:Pt must try/fail topical corticosteroids or calcineurin inhibitors first. Please let us know next steps. ER COVERER HELPER * Telephone Encounter - Cory Esquivel CMA - 05/15/2024 3:44 PM BOILER COVERER HELPER It is not out of stock. His insurance company denied it. [facility] pharmacy sent you/ your pool a message. Patient must try/fail other medications Insurance Plan: [facility] Prior Authorization Required: Y CoverMyMeds [place]: [id number] [place] Status: Denied Notes to Office:Pt must try/fail topical corticosteroids or calcineurin inhibitors first. Please let us know next steps. ER COVERER HELPER ER COVERER HELPER ER COVERER HELPER * Telephone Encounter - Malia Owens MD PhD - 05/15/2024 2:35 PM CST Can you send it to our pharmacy. ER COVERER HELPER * Telephone Encounter - Senait Shelby - 05/15/2024 1:37 PM CST Pt would like a call back Pt states [facility] pharmacy told him that Ruxolitinib 1.5%cream is out of stock. Pt states he needs an alternative medication. [facility] pharmacy #[id number] is correct. ER COVERER HELPER documented in this encounter Plan of Treatment Not on file documented as of this encounter Visit Diagnoses Not on filedocumented in this encounter Care Teams Senior Linux Unix Administrator Relationship Specialty Start Date End Date Kalpana Michel NP [address] [facility] [place] [address] PCP - General Family Medicine 08/25/23 06/25/24 Wilian Willams MD [address] [place] [address] [place] [address] PCP - General Internal Medicine 06/26/24 documented as of this encounter
--- OUTSIDE RECORDS SUMMARY | 2024-06-26 22:05 | XMS_ITS | Clinical Summary ---
Author Organization [facility] Address [address] [place] [address] Care Team Providers Care Information Technology Audit Manager Name Role Phone Wilian Willams MD Primary Care Provider [phone] Allergies No known active allergies Medications ibuprofen [...] Type Department Care Team Description 05/15/2024 Telephone [facility] Dermatology [address] [place] [address] [address] [place] [address] Senait Shelby Request Call Back; Appeal Status 04/27/2024 Telephone [facility] Dermatology [facility] [place] [facility] Outpatient Health [address] [place] [address] Carline Bowie, [facility] [place] Medication Denial 04/17/2024 9:00 AM LIQUID WASTE TREATMENT PLANT OPERATOR Office Visit [facility] Dermatology [address] [place] [address] [address] [place] [address] Malia Owens MD PhD Vitiligo (Primary [...] Vaccine Completed 10/02/2019, 014 Insurance AET[employer] BETTER [facility] AETNA BETTER [facility] Care Teams Information Technology Audit Manager Relationship Specialty Start Date End Date Wilian Willams MD [address] [place] [address] PCP - General Internal Medicine 06/26/24
--- OUTSIDE RECORDS SUMMARY | 2024-06-26 22:05 | XMS_ITS | Patient Health Summary ---
Author Organization [facility] [employer] Address [address] [place] [address] Care Team Providers Care Contract Sheltered Workshop Supervisor Name Role Phone Unavailable Primary Care Provider Unavailabl e Note from [facility],non-owned Affiliates and Associated Physician Practices is amultiple site organization consisting of ambulatory clinics and hospital sitesin [place], [place], [place] and [place]. This disclosure is being madepursuant to the Care Everywhere program and may not contain all information available regarding this patient. Last updated 18.[facility] [employer] Allergies No known active allergies Medications * [...] file Gender Identity Male 04/10/2021 4:04 PM PHARMACOEPIDEMIOLOGIST Sexual Orientation Not on file Last Filed Vital Signs Vital Sign Reading Time Taken Comments Blood Pressure 112/68 04/10/2021 4:09 PM PHARMACOEPIDEMIOLOGIST Pulse 66 04/10/2021 4:09 PM PHARMACOEPIDEMIOLOGIST Temperature 37.2 C (99 F) 04/10/2021 4:09 PM PHARMACOEPIDEMIOLOGIST Respiratory Rate 16 04/10/2021 4:09 PM PHARMACOEPIDEMIOLOGIST Oxygen Saturation 98% 04/10/2021 4:09 PM PHARMACOEPIDEMIOLOGIST Inhaled Oxygen Concentration - - Weight 108.9 kg (240 lb) 04/10/2021 4:09 PM PHARMACOEPIDEMIOLOGIST Height 172.7 cm (5' 8 ) 04/10/2021 4:09 PM PHARMACOEPIDEMIOLOGIST Body Mass Index 36.49 04/10/2021 4:09 PM PHARMACOEPIDEMIOLOGIST Procedures * STREP A SCREEN - POINT OF CARE (AMB) STL(Performed 04/10/2021) Performed for Acute streptococcal pharyngitis Results * (ABNORMAL) STREP A SCREEN - POINT OF CARE (AMB) STL (04/10/2021 4:27 PM PHARMACOEPIDEMIOLOGIST) Strep A Rapid POCT Positive(A) Negative [facility] Strep A Internal Control Present [facility] Lot # [id number] [facility] Expiration Date 09/21/22 [facility] Throat ENTIRE THROAT (SURFACE REGION OF NECK) / Unknown 04/10/2021 4:27 PM PHARMACOEPIDEMIOLOGIST Nirmala Gill APRN-[facility] - POINT OF CA RE ORDERABLES [facility] [address] [phone]
--- OUTSIDE RECORDS SUMMARY | 2024-06-26 22:05 | XMS_ITS | Clinical Summary ---
Author Organization [facility] Address [address] [facility] [place] [address] Care Team Providers Care Business Systems Technician Name Role Phone Unavailable Primary Care Provider Unavailabl e Source Comments [facility],non-owned Affiliates and Associated Physician Practices is amultiple site organization consisting of ambulatory clinics and hospital sitesin [place], [place], [place] and [place]. This disclosure is being madepursuant to the Care Everywhere program and may not contain all information available regarding this patient. Last updated 18.[facility] Allergies No known active allergies Medications * [...] file Gender Identity Male 04/10/2021 4:04 PM CASTING CHIPPER Sexual Orientation Not on file Last Filed Vital Signs Vital Sign Reading Time Taken Comments Blood Pressure 112/68 04/10/2021 4:09 PM CASTING CHIPPER Pulse 66 04/10/2021 4:09 PM CASTING CHIPPER Temperature 37.2 C (99 F) 04/10/2021 4:09 PM CASTING CHIPPER Respiratory Rate 16 04/10/2021 4:09 PM CASTING CHIPPER Oxygen Saturation 98% 04/10/2021 4:09 PM CASTING CHIPPER Inhaled Oxygen Concentration - - Weight 108.9 kg (240 lb) 04/10/2021 4:09 PM CASTING CHIPPER Height 172.7 cm (5' 8 ) 04/10/2021 4:09 PM CASTING CHIPPER Body Mass Index 36.49 04/10/2021 4:09 PM CASTING CHIPPER Plan of Treatment Health Maintenance Due Date [...]
[2024-06-26 22:21] LABS: Strep Group A RT-PCR NOT DETECTED (Negative)
[2024-06-26 22:32] LABS: Influenza A QL RT-PCR Negative (Negative); Influenza B QL RT-PCR Negative (Negative); RSV RNA, RT-PCR Negative (Negative); SARS-CoV-2 RNA PCR Negative (Negative)
[2024-06-26] MEDS: predniSONE 20 MG TABLET 60 MG PO (22:39)
[2024-06-26] MEDS: KETOROLAC (*BKC) 60 MG/2 ML VIAL IM (22:39)
[2024-06-26 23:18] LABS: Basophils Absolute Auto 0.1 K/mm3 (0.0-0.1); Basophils Percent Auto 0.8 % (0.2-1.2); Eosinophils Absolute Auto 0.1 K/mm3 (0-0.3); Eosinophils Percent Auto 1.8 % (0-4.4); Hematocrit 43.6 % (42.0-52.0); Hemoglobin 15.1 g/dL (14.0-18.0); Immature Granulocyte Absolute 0.02 K/mm3 (0.00-0.031); Immature Granulocyte Percent A 0.3 % (0-0.5); Lymphocytes Absolute Auto 2.32 K/mm3 (0.9-3.2); Lymphocytes Percent Auto 29.2 % (18.3-44.2); Mean Corpuscular HGB Conc 34.6 g/dl (32-36); Mean Corpuscular Hemoglobin 29.5 pg (26-34); Mean Corpuscular Volume 85.2 fl (80-100); Mean Platelet Volume 10.1 fl (7.4-10.4); Monocytes Absolute Auto 0.8 K/mm3 (0.1-0.6); Monocytes Percent Auto 9.9 % (2.6-8.5); Neutrophils Absolute Auto 4.6 K/mm3 (1.3-6.7); Platelet Count Result 308 k/mm3 (150-375); Red Blood Count 5.12 M/mm3 (4.6-6.20); Red Cell Distribution Width 13.4 % (11.5-14.5); White Blood Count 7.9 K/mm3 (4.5-10.0)
[2024-06-26 23:27] LABS: Alanine Aminotransferase 31 U/L (6-50); Albumin Level 4.3 g/dL (3.5-5.1); Alkaline Phosphatase 87 U/L (38-126); Anion Gap 10 mmol/L (4-12); Aspartate Amino Transferase 84 U/L (17-59); Bilirubin,Total 0.5 mg/dL (0.2-1.3); Blood Urea Nitrogen 14 mg/dL (9-20); Calcium 9.3 mg/dL (8.4-10.2); Carbon Dioxide 23 mmol/L (22-30); Chloride 107 mmol/L (98-107); Estimated CRCL calculation 135 ml/min; Estimated Glomerular Filt Rate > 60; Glucose 97 mg/dL (65-110); Potassium 4.6 mmol/L (3.4-5.0); Sodium 140 mmol/L (137-145)
[2024-06-26 23:36] LABS: Monoscreen Negative (Negative); Negative Monotest Control Negative (Negative); Positive Monotest Control Positive (Positive)
[2024-06-27] MEDS: BELLADONNA ALK/PHENOB ELIX 10 ML, MAG HYDROX/ALUMINUM HYD/SIMETH 30 ML, LIDOCAINE 2% VI... PO (01:28)
[2024-06-27] MEDS: AMOXICILLIN/CLAVULANATE K 875-125 MG TAB 1 TABLET PO (03:20)
[2024-06-27 03:51] VITALS: BP 122/78; PULSE 74; RESP 17; TEMP 36.3; O2SAT 100
== END 2024-06-27 03:52 | disposition home or self-care (01) ==
PROVIDERS: Emergency Medicine; Emergency Provider Registered Nurse
DX: J03.80 Acute tonsillitis due to other specified organisms (principal); B96.89 Other specified bacterial agents as the cause of diseases classified elsewhere; Z20.822 Contact with and (suspected) exposure to COVID-19; F41.9 Anxiety disorder, unspecified; Z79.899 Other long term (current) drug therapy
CPT/HCPCS: 36415; 70491; 71046; 80053; 85025; 86308; 87637; 87651; 96372; 99284; A9270; J1885; J7512; Q9967